=== PATIENT | female | born 1970 | race Caucasian/White ===

== ENCOUNTER 2016-04-03 22:57 | Emergency (ER) | payer OTHER, BC ==
[~2016-04-03] VITALS: Ht 175.3 cm; Wt 59.0 kg
[2016-04-03] MEDS ORDERED: methylPREDNISolone 125 MG (Solu-MEDROL) VIAL IV ONE (23:15)
[2016-04-03] MEDS ORDERED: LEVALBUTEROL 1.25 MG/0.5 ML (XOPENEX) NEB INH ONE (23:15)
[2016-04-03 23:50] LABS: BASOPHILS % (AUTO) 1 % (0-2); EOSINOPHILS # (AUTO) 0.3 10^3uL; EOSINOPHILS % (AUTO) 4 % (0-4); LYMPHOCYTES # (AUTO) 1.8 X10^3; MEAN CORPUSCULAR HGB CONC 34.3 g/dL (31.0-37.0); MEAN CORPUSCULAR VOLUME 91 FL (80-100); MEAN PLATELET VOLUME 11.7 FL (6.0-9.5); MONOCYTES # (AUTO) 0.6 X10^3; MONOCYTES % (AUTO) 8 % (3-11); NEUTROPHILS # (AUTO) 4.6 X10^3; NEUTROPHILS % (AUTO) 63 % (51-67); PLATELET COUNT 158 10^3uL (150-450)
[2016-04-03 23:56] LABS: ALBUMIN 3.5 g/dL (3.4-5.0); ANION GAP 14.2 MEQ/L (3-15); CALCULATED IONIZED CALCIUM 4.3 mg/dL (3.8-4.6); TOTAL PROTEIN 6.1 g/dL (6.4-8.5)
[2016-04-04 00:08] LABS: MEAN CORPUSCULAR HEMOGLOBIN 31.4 PG (26.0-34.0)
[2016-04-04] MEDS ORDERED: ALBUTEROL 0.083% NEB SOLUTION 2.5 MG/3 ML VIAL INH ONE (00:15)
[2016-04-04] MEDS ORDERED: diphenhydrAMINE 50 MG/ML INJ (BENADRYL) IV ONE (00:15)
[2016-04-04 01:46] VITALS: BP 95/62
== END 2016-04-04 01:15 | disposition home or self-care (01) ==
LOC: ED 22:58
DX: J45.901 Unspecified asthma with (acute) exacerbation (principal); J06.9 Acute upper respiratory infection, unspecified
CPT/HCPCS: 36415; 71020; 80053; 82803; 85025; 86140; 87486; 87581; 87633; 87798; 94640; 96361; 96374; 96375; 99282; J1200; J2930; J7030; 99283

== ENCOUNTER 2016-05-13 16:37 | Emergency (ER) | payer OTHER, BC ==
[~2016-05-13] VITALS: Ht 175.3 cm; Wt 62.0 kg
[2016-05-13] MEDS ORDERED: methylPREDNISolone 125 MG (Solu-MEDROL) VIAL IV ONE (17:05)
[2016-05-13] MEDS ORDERED: LEVALBUTEROL 1.25 MG/0.5 ML (XOPENEX) NEB INH ONE ×2 (17:05→18:30)
[2016-05-13] MEDS ORDERED: SODIUM CHLORIDE 0.9% NEB SOLN 3 ML VIAL ONE ×3 (17:15→18:39)
[2016-05-13] MEDS ORDERED: EPINEPHrine 1MG/ML (1:1000) 1 ML AMPUL (ADRENALIN) SC ONE (18:30)
[2016-05-13] MEDS ORDERED: LORazepam 2 MG/ML (ATIVAN) 1 ML VIAL IV ONE ×2 (19:00→19:55)
[2016-05-13 19:27] LABS: BASOPHILS % (AUTO) 0 % (0-2); EOSINOPHILS % (AUTO) 1 % (0-4); LYMPHOCYTES # (AUTO) 0.9 X10^3; MEAN CORPUSCULAR HEMOGLOBIN 31.3 PG (26.0-34.0); MEAN CORPUSCULAR HGB CONC 34.7 g/dL (31.0-37.0); MEAN CORPUSCULAR VOLUME 90 FL (80-100); MEAN PLATELET VOLUME 12.5 FL (6.0-9.5); MONOCYTES # (AUTO) 0.7 X10^3; MONOCYTES % (AUTO) 10 % (3-11); NEUTROPHILS # (AUTO) 5.9 X10^3; NEUTROPHILS % (AUTO) 79 % (51-67); PLATELET COUNT 193 10^3uL (150-450); WHITE BLOOD COUNT 7.51 10^3uL (4.0-11.0)
[2016-05-13 19:33] LABS: ALBUMIN 3.6 g/dL (3.4-5.0); ANION GAP 15.5 MEQ/L (3-15); CALCULATED IONIZED CALCIUM 4.2 mg/dL (3.8-4.6); TOTAL PROTEIN 6.3 g/dL (6.4-8.5)
[2016-05-13] MEDS ORDERED: diphenhydrAMINE 50 MG/ML INJ (BENADRYL) IV ONE (19:55)
[2016-05-13] MEDS ORDERED: ALBUTEROL/IPRATROPIUM 3MG-0.5MG/3ML (DUONEB) NEB VIAL INH ONE ×2 (21:10→23:30)
[2016-05-14 00:33] VITALS: BP 118/51
== END 2016-05-14 00:34 | disposition short-term general hospital (02) ==
LOC: ED 16:38
DX: J44.1 Chronic obstructive pulmonary disease with (acute) exacerbation (principal); Z79.51 Long term (current) use of inhaled steroids; F41.9 Anxiety disorder, unspecified
CPT/HCPCS: 36415; 71010; 80053; 85025; 94640; 96361; 96372; 96374; 96375; 96376; 99283; J0171; J1200; J2060; J2930; J7030

== ENCOUNTER → 2016-05-14 | Outpatient (CLI) | payer OTHER, BC | LOC: EMS 00:35 | PROVIDERS: ATTEND Emergency Medicine | DX: J44.1 Chronic obstructive pulmonary disease with (acute) exacerbation (principal) ==